=== PATIENT | male | born 1975 | race Caucasian/White ===

== ENCOUNTER → 2019-04-24 | Outpatient (CLI) | payer OTHER ==
[~2019-04-24] MED LIST: CYCL10 PO; HYDACE5 PO; IBUP600 PO; NAPR500 PO; OXYACE5T PO; PENVK500 PO; RXCLIN PO
[2019-04-24 14:45] LABS: Bilirubin, Urine Neg (Neg); Blood, Urine 2+ (Neg); Glucose Qualitative, Urine Neg (Neg); Ketones, Urine Neg (Neg); Leukocyte Esterase, Urine Neg (Neg); Nitrite, Urine Neg (Neg); Protein, Urine Neg (Neg); Specific Gravity, Urine 1.015 (1.003-1.022); Urobilinogen, Urine NORM (Normal)
[2019-04-24 15:13] LABS: Appearance, Urine Clear (Clear); Color, Urine Yellow (P-Yellow)
[2019-04-24 15:14] LABS: White Blood Cells, Urine Rare /hpf (0-5)
[2019-04-24 15:15] LABS: Squamous Epithelial Cells Not Seen /hpf (Few)
[2019-04-24 15:16] LABS: Bacteria Few /hpf
== END | disposition home or self-care (01) ==
LOC: OLS 11:02 → LAB SHORT 11:02 → LAB FUT 04-23 16:40
PROVIDERS: Hospitalist
DX: R10.9 Unspecified abdominal pain (principal)
CPT/HCPCS: 81001

== ENCOUNTER 2019-05-27 07:47 | Day surgery (SDC) | payer OTHER ==
[~2019-05-27] VITALS: Ht 182.9 cm; Wt 103.2 kg
--- NOTE | 2019-05-27 09:47 | NUR ---
05/27/19 0947 MARCO ANTONIO BARRETO History, Chart, Medications and Allergies reviewed before start of procedure.3-LEAD EKG REVIEWED WITH PHYSICIAN PRIOR TO START OF PROCEDURE.O2 VIA N/C INTACT THROUGHOUT SEDATION/PROCEDURE. MONITOR INTACT WITH CONTINUOUS PULSE OXIMETRY AND INTERMITTENT BP.PATIENT DETERMINED TO BE ASA APPROPRIATE FOR PROPOFOL SEDATION PRIOR TO START OF PROCEDURE BY .
--- NOTE | 2019-05-27 10:29 | NUR ---
Patient up to Ambulate independently. Gait steady. Discharged via wheelchair to private car for ride home. Discharge instructions reviewed with patient. Patient verbalizes understanding. Copy given to patient to take home.
== END 2019-05-27 23:10 | disposition home or self-care (01) ==
LOC: ORSCMMR 07:47 → ORD 09:00 → ORSCMMR 23:10
PROVIDERS: Internal Medicine Gastroenterology
PROC: 0DBN8ZX Excision of Sigmoid Colon, Via Natural or Artificial Opening Endoscopic, Diagnostic (ICD-10-PCS; principal; 2019-05-27 09:00)
PROC: 0DBB8ZX Excision of Ileum, Via Natural or Artificial Opening Endoscopic, Diagnostic (ICD-10-PCS; principal; 2019-05-27 09:00)
PROC: 0DBL8ZX Excision of Transverse Colon, Via Natural or Artificial Opening Endoscopic, Diagnostic (ICD-10-PCS; principal; 2019-05-27 09:00)
PROC: 0DBK8ZX Excision of Ascending Colon, Via Natural or Artificial Opening Endoscopic, Diagnostic (ICD-10-PCS; principal; 2019-05-27 09:00)
DX: K62.5 Hemorrhage of anus and rectum (principal); K63.5 Polyp of colon; D12.5 Benign neoplasm of sigmoid colon; K64.4 Residual hemorrhoidal skin tags; R19.4 Change in bowel habit
CPT/HCPCS: 88305; J2704; J7120

== ENCOUNTER 2022-01-22 09:03 | Day surgery (SDC) | payer OTHER ==
[~2022-01-22] VITALS: Ht 182.9 cm; Wt 105.6 kg
--- NOTE | 2022-01-22 11:05 | NUR ---
01/22/22 1105 SANIA MACHUCA 0.05MG OF EPI (1MG/1ML) ADDED TO 10MLS OF ROPIVACIANE 0.5% TO CREATE A LOCAL SOLUTION OF ROPIVACAINE 0.5% WITH EPI 1:200,000. POURED ONTO STERILE FIELD FOR USE DURING CASE.
--- NOTE | 2022-01-22 12:15 | NUR ---
01/22/22 1215 SCOTTIE ANDREA PT C/O PAIN 6[birth year]. NORCO GIVEN AND 25MCG FENTANYL GIVEN
== END 2022-01-22 12:33 | disposition home or self-care (01) ==
LOC: ORSCSDS 09:03
PROVIDERS: Orthopaedic Surgery
PROC: 0JCG0ZZ Extirpation of Matter from Right Lower Arm Subcutaneous Tissue and Fascia, Open Approach (ICD-10-PCS; principal; 2022-01-22 14:45)
DX: S61.041A Puncture wound with foreign body of right thumb without damage to nail, initial encounter (principal); K21.9 Gastro-esophageal reflux disease without esophagitis; Z87.891 Personal history of nicotine dependence
CPT/HCPCS: 88300; A9270; J0171; J0690; J1100; J1885; J2250; J2405; J2704; J2795; J3010

== ENCOUNTER → 2025-01-19 | Outpatient (CLI) | payer OTHER ==
[2025-01-19 20:10] LABS: Anion Gap 8.0 mmol/L (3-11); Blood Urea Nitrogen 13.0 mg/dL (8-24); CO2, Blood 26.0 mmol/L (21-32); Calcium, Blood 9.0 mg/dL (8.5-10.1); Chloride, Blood 110.0 mmol/L (98-108); Creatinine, Blood 0.81 mg/dL (0.60-1.20); Glucose, Blood 105.0 mg/dL (70-99); Potassium, Blood 4.1 mmol/L (3.5-5.5); Sodium, Blood 140.0 mmol/L (136-145)
== END | disposition home or self-care (01) ==
LOC: LAB SHORT 19:38 → LAB 19:38
PROVIDERS: Hospitalist
DX: R10.9 Unspecified abdominal pain (principal)
CPT/HCPCS: 80048